=== PATIENT | male | born 1950 | race Caucasian/White ===

== ENCOUNTER 2017-03-20 10:26 | Outpatient (CLI) | payer MEDICARE, OTHER ==
[2017-03-20 16:52] LABS: ALT (SGPT) 55 U/L (8-55); AST (SGOT) 48 U/L (5-34); Albumin 4.6 g/dL (3.4-4.8); Alkaline Phosphatase 69 U/L (40-150); Anion Gap 15 mmol/L (10-20); BUN (Urea Nitrogen) 10 mg/dL (8.4-25.7); Band 2 % (5-11); Bilirubin, Total 0.9 mg/dL (0.2-1.2); Calc. Creatinine Clearance 0 mL/min (70-130); Calcium 9.7 mg/dL (7.8-10.44); Carbon Dioxide 25 mmol/L (23-31); Cardiac Risk 2.3 (Less than 4.5); Chloride 102 mmol/L (98-107); Cholesterol 137 mg/dl (< 200 Desired); Estimated GFR-MDRD 76; Globulin 3.2 g/dL (2.4-3.5); Glucose 96 mg/dL (80-115); HDL Cholesterol 60 mg/dL (>60 Neg Risk); LDL Cholesterol, Calculated 54 mg/dL; Lymphocytes 27 % (21-51); MDiff Complete? YES; Mean Corpuscular HGB CONC 36.5 g/dL (32.0-36.0); Mean Corpuscular Hemoglobin 35.7 pg (27.0-31.0); Mean Corpuscular Volume 97.8 fl (80.0-94.0); Mean Platelet Volume 8.2 fL (7.4-10.4); Monocytes 6 % (0-10); Neutrophil 65 % (42-75); Platelet Count 138 thou/uL (130-400); Potassium 4.9 mmol/L (3.5-5.1); Protein, Total 7.8 g/dL (5.8-8.1); RBC Distribution Width 11.4 % (11.5-14.5); Red Blood Cell (RBC) Count 4.76 mill/uL (4.70-6.10); Sodium 137 mmol/L (136-145); Triglycerides 115 mg/dL (Less than 150); White Blood Cell (WBC) Count 6.8 thou/uL (4.8-10.8)
[2017-03-20 17:13] LABS: PSA-Asymptomatic (SCREENING) 1.23 ng/mL (0-4.0); Thyroid Stimulating Hormone 0.8993 uIU/mL (0.35-4.94)
[2017-03-20 17:39] LABS: Albumin (w/Testosterone Panel) 4.8 g/dL
[2017-03-20 18:04] LABS: Sex Hormone Binding Globulin 79.9 nmol/L (11-78); Testosterone, Free 95.3 pg/mL (47-244); Testosterone, Total 821.3 ng/dL (221-716)
== END 2017-03-20 10:27 ==
LOC: LABLEX 10:26
PROVIDERS: ATTEND Family Medicine
DX: Z12.5 Encounter for screening for malignant neoplasm of prostate (principal); Z00.00 Encounter for general adult medical examination without abnormal findings; E78.1 Pure hyperglyceridemia; I10 Essential (primary) hypertension
CPT/HCPCS: 80053; 80061; 84270; 84403; 84443; 85025; G0103

== ENCOUNTER 2017-04-24 09:40 | Outpatient (CLI) | payer MEDICARE ==
[2017-04-24 16:35] LABS: ALT (SGPT) 48 U/L (8-55); AST (SGOT) 43 U/L (5-34); Albumin 4.3 g/dL (3.4-4.8); Alkaline Phosphatase 69 U/L (40-150); Bilirubin, Direct 0.5 mg/dL (0.1-0.3); Bilirubin, Total 1.1 mg/dL (0.2-1.2)
== END 2017-04-24 09:41 | disposition home or self-care (01) ==
LOC: LABLEX 09:40
PROVIDERS: ATTEND Nurse Practitioner
DX: R79.89 Other specified abnormal findings of blood chemistry (principal)
CPT/HCPCS: 80076

== ENCOUNTER 2019-03-10 11:38 | Outpatient (CLI) | payer MEDICARE ==
--- NOTE | 2019-03-10 13:21 | RAD ---
XR Elbow Rt 4 View STANDARD History: Pain in right elbow M 25.521 Comparison: None. Findings: These hepatic changes of the common extensor and flexor tendons. Mild narrowing of the radi ocapitellar joint. Ossification along the radial collateral ligament and annular ligament. Small joint effusion. Impression: 1. Chronic lateral epicondylitis with evidence of prior lateral ligamentous injury. 2. Small joint effusion may be degenerative in nature. 3. Moderate narrowing of the radiocapitellar joint. 4. Chronic medial epicondylitis.
--- NOTE | 2019-03-10 13:23 | RAD ---
XR Elbow Lt 4 View STANDARD History: Pain Comparison: None. Findings: Chronic lateral epicondylitis ossification of the common extensor tendon. Mild chronic medi al colitis with ossification the common flexor tendon. Mild narrowing of the radiocapitellar and ulnotrochlear joints. Small joint effusion. No acute displaced fracture. Impression: 1. Chronic medial and lateral epicondylitis. 2. Mild bicompartmental joint space narrowing, degenerative in nature. 3. Small joint effusion may be degenerative in nature.
== END 2019-03-10 11:39 | disposition home or self-care (01) ==
LOC: BURRAD 11:38
PROVIDERS: ATTEND Family Medicine
DX: M25.521 Pain in right elbow (principal); M25.522 Pain in left elbow; M77.12 Lateral epicondylitis, left elbow; M77.02 Medial epicondylitis, left elbow; M25.422 Effusion, left elbow; M25.421 Effusion, right elbow; M77.11 Lateral epicondylitis, right elbow; M77.01 Medial epicondylitis, right elbow; M25.822 Other specified joint disorders, left elbow; M25.821 Other specified joint disorders, right elbow

== ENCOUNTER 2020-10-27 11:15 | Outpatient (CLI) | payer MEDICARE ==
[2020-10-27 17:39] LABS: Amphetamine Not Detected (NotDetected); Barbiturates Screen Not Detected (NotDetected); Benzodiazepine Screen Not Detected (NotDetected); Cocaine Metabolite Screen Not Detected (NotDetected); Medtox Control Line Valid? VALID (VALID); Methadone Not Detected (NotDetected); Methamphetamine Not Detected (NotDetected); Opiate Screen Not Detected (NotDetected); Oxycodone Screen Not Detected (NotDetected); Phencyclidine (PCP) Not Detected (NotDetected); THC/Cannabinoid Screen Not Detected (NotDetected); Tricyclic Screen Not Detected (NotDetected)
[2020-10-27 17:43] LABS: #Eosinphils 0.2 thou/uL (0.0-0.7); #Lymphocytes 1.7 thou/uL (1.20-3.40); #Monocytes 1.1 thou/uL (0.11-0.59); #Neutrophils 5.6 thou/uL (1.40-6.50); %Basophils 0.5 % (0.0-1.0); %Eosinophils 2.4 % (0.0-10.0); %Lymphocytes 19.1 % (21.0-51.0); Hemoglobin 15.5 g/dL (14.0-18.0); Mean Corpuscular HGB CONC 34.9 g/dL (32.0-36.0); Mean Corpuscular Hemoglobin 35.1 pg (27.0-31.0); Mean Platelet Volume 8.9 fL (7.4-10.4); Platelet Count 170 thou/uL (130-400); RBC Distribution Width 11.6 % (11.5-14.5); White Blood Cell (WBC) Count 8.6 thou/uL (4.8-10.8)
[2020-10-27 18:30] LABS: PSA-Asymptomatic (SCREENING) 1.51 ng/mL (0-4.0)
[2020-10-28 08:03] LABS: ALT (SGPT) 40 U/L (8-55); AST (SGOT) 31 U/L (5-34); Albumin 4.4 g/dL (3.4-4.8); Alkaline Phosphatase 80 U/L (40-110); Anion Gap 16 mmol/L (10-20); BUN (Urea Nitrogen) 15 mg/dL (8.4-25.7); Bilirubin, Total 0.9 mg/dL (0.2-1.2); Calc. Creatinine Clearance 0 mL/min (70-130); Calcium 8.9 mg/dL (7.8-10.44); Carbon Dioxide 22 mmol/L (23-31); Cardiac Risk 2.4 (Less than 4.5); Chloride 100 mmol/L (98-107); Cholesterol 129 mg/dl (< 200 Desired); Glucose 74 mg/dL (80-115); HDL Cholesterol 53 mg/dL (>60 Neg Risk); LDL Cholesterol, Calculated 44 mg/dL; Potassium 4.2 mmol/L (3.5-5.1); Protein, Total 7.4 g/dL (5.8-8.1); Sodium 134 mmol/L (136-145); Thyroid Stimulating Hormone 0.6938 uIU/mL (0.35-4.94); Triglycerides 162 mg/dL (Less than 150)
== END 2020-10-27 11:16 | disposition home or self-care (01) ==
LOC: HPCALD 11:15
PROVIDERS: ATTEND Family Medicine
DX: Z00.00 Encounter for general adult medical examination without abnormal findings (principal); Z12.5 Encounter for screening for malignant neoplasm of prostate; M25.561 Pain in right knee; E78.5 Hyperlipidemia, unspecified; I10 Essential (primary) hypertension
CPT/HCPCS: 36415; 80053; 80061; 80306; 84443; 85025; G0103

== ENCOUNTER 2024-07-15 01:03 | Emergency (ER) | payer MEDICARE ==
[2024-07-15] MEDS ORDERED: Ondansetron PF 4 MG/2 ML Vial ONE (13:30)
[2024-07-15] MEDS ORDERED: Cefuroxime 500 MG TAB ONE (13:30)
[2024-07-20 12:21] LABS: Sodium 128 mmol/L (136-145)
[2024-07-20 12:22] LABS: ALT (SGPT) 26 U/L (8-55); AST (SGOT) 26 U/L (5-34); Albumin 3.8 g/dL (3.4-4.8); Alkaline Phosphatase 67 U/L (40-110); Anion Gap 13 mmol/L (10-20); BUN (Urea Nitrogen) 10 mg/dL (8.4-25.7); Bilirubin, Total 0.5 mg/dL (0.2-1.2); Calc. Creatinine Clearance 0 mL/min (70-130); Calcium 9.4 mg/dL (7.6-10.4); Carbon Dioxide 20 mmol/L (23-31); Chloride 99 mmol/L (98-107); Estimated GFR 56; Globulin 3.2 g/dL (2.4-3.5); Glucose 105 mg/dL (83-110)
[2024-07-20 12:25] LABS: Clarity Cloudy (Clear); Glucose, Urine (Dipstick) Negative (Negative); Ketone, Urine Negative (Negative); Leukocyte Moderate (Negative); Nitrite Negative (Negative); Protein, Urine (Dipstick) Negative (Neg-Trace); Troponin I Less than 0.010 ng/mL (< 0.028)
[2024-07-20 12:26] LABS: Bacteria/HPF 4+ HPF (None Seen); Bilirubin Negative (Negative); Blood, Urine Negative (Negative); Hematocrit 38.7 % (42.0-52.0); RBC/HPF None Seen HPF (0-3); Red Blood Cell (RBC) Count 4.46 mill/uL (4.70-6.10); Squamous Epithelial None Seen HPF (0-3); White Blood Cell (WBC) Count 10.2 10x3/uL (4.8-10.8)
[2024-07-20 12:27] LABS: #Basophils 0.1 thou/uL (0.0-0.2); #Eosinophils 0.2 thou/uL (0.0-0.7); #Monocytes 0.9 thou/uL (0.11-0.59); #Neutrophils 7.8 thou/uL (1.40-6.50); %Basophils 0.8 % (0.0-1.0); %Lymphocytes 12.4 % (21.0-51.0); %Monocytes 8.4 % (0.0-10.0); %Neutrophils 76.5 % (42.0-75.0); MDiff Complete? YES; Mean Corpuscular HGB CONC 33.6 g/dL (32.0-36.0); Mean Corpuscular Hemoglobin 29.1 pg (27.0-31.0); Mean Corpuscular Volume 86.6 fl (78.0-98.0); Mean Platelet Volume 7.3 fL (7.4-10.4); Platelet Count 192 10x3/uL (130-400); RBC Distribution Width 12.7 % (11.5-14.5)
== END 2024-07-15 15:06 | disposition home or self-care (01) ==
LOC: BURERS 01:03
DX: N39.0 Urinary tract infection, site not specified (principal); E87.1 Hypo-osmolality and hyponatremia; I10 Essential (primary) hypertension; K21.9 Gastro-esophageal reflux disease without esophagitis; E78.00 Pure hypercholesterolemia, unspecified; Z79.899 Other long term (current) drug therapy
CPT/HCPCS: 71045; 80053; 81001; 83605; 84484; 85025; 87077; 87086; 87186; 96374; 96376; 99284; J2405